=== PATIENT | male | born 1960 | race Caucasian/White ===

== ENCOUNTER 2023-01-02 15:23 | Emergency (ER) | payer OTHER, BC ==
[2023-01-02 15:44] VITALS: RESP 18; BMI 29.7
[2023-01-02 16:56] VITALS: BP 130/88; PULSE 82; TEMP 98.3
== END 2023-01-02 16:59 | disposition home or self-care (01) ==
LOC: FER 15:23
PROC: 3E023GC Introduction of Other Therapeutic Substance into Muscle, Percutaneous Approach (ICD-10-PCS; principal; 2023-01-02)
DX: T63.441A Toxic effect of venom of bees, accidental (unintentional), initial encounter (principal); L29.9 Pruritus, unspecified; W57.XXXA Bitten or stung by nonvenomous insect and other nonvenomous arthropods, initial encounter; Y93.9 Activity, unspecified; Y92.9 Unspecified place or not applicable
CPT/HCPCS: 99284-25